=== PATIENT | male | born 1990 ===

== ENCOUNTER 2018-07-08 22:33 | Inpatient (IN) | payer SELFPAY ==
[~2018-07-08] VITALS: Ht 170.2 cm; Wt 119.8 kg
[2018-07-08 23:37] LABS: BASOPHILS % (AUTO) 0 % (0-10); EOSINOPHILS # (AUTO) 0.2 10^3/uL (0.0-0.3); EOSINOPHILS % (AUTO) 2 % (0-10); HEMATOCRIT 30 % (40-54); HEMOGLOBIN 10.5 G/DL (13.3-17.7); LYMPHOCYTES # (AUTO) 1.9 X 10^3 (1.0-4.0); LYMPHOCYTES % (AUTO) 19 % (12-44); MEAN CORPUSCULAR HEMOGLOBIN 32 PG (25-34); MEAN CORPUSCULAR HGB CONC 35 G/DL (32-36); MEAN CORPUSCULAR VOLUME 92 FL (80-99); MEAN PLATELET VOLUME 9.8 FL (7.4-10.4); MONOCYTES # (AUTO) 1.2 X 10^3 (0.0-1.0); MONOCYTES % (AUTO) 12 % (0-12); NEUTROPHILS # (AUTO) 6.7 X 10^3 (1.8-7.8); NEUTROPHILS % (AUTO) 67 % (42-75); PLATELET COUNT 147 10^3/uL (130-400); RED CELL DISTRIBUTION WIDTH 12.7 % (10.0-14.5); WHITE BLOOD COUNT 10.1 10^3/uL (4.3-11.0)
[2018-07-08 23:42] LABS: CLARITY,URINE CLEAR; COLOR,URINE YELLOW; GLUCOSE, URINE (UA) NEGATIVE (NEGATIVE); KETONES,URINE NEGATIVE (NEGATIVE); LEUKOCYTE ESTERASE ,URINE 1+ (NEGATIVE); NITRITE,URINE NEGATIVE (NEGATIVE); PH,URINE 6 (5-9); PROTEIN,URINE NEGATIVE (NEGATIVE); UROBILINOGEN,URINE 12 MG/DL (NORMAL)
[2018-07-08 23:49] LABS: INR 1.1 (0.8-1.4); PROTHROMBIN TIME PATIENT 14.4 SEC (12.2-14.7)
[2018-07-08 23:57] LABS: ALANINE AMINOTRANSFERASE 43 U/L (0-55); ALKALINE PHOSPHATASE 70 U/L (40-136); AMYLASE 114 U/L (25-125); BILIRUBIN,TOTAL 2.2 MG/DL (0.1-1.0); BUN/CREATININE RATIO 28; CALCIUM 8.8 MG/DL (8.5-10.1); CARBON DIOXIDE 26 MMOL/L (21-32); CHLORIDE 107 MMOL/L (98-107); CREATININE SERUM 0.76 MG/DL (0.60-1.30); GFR ESTIMATED > 60; GLUCOSE 104 MG/DL (70-105); LIPASE 28 U/L (8-78); MAGNESIUM 2.3 MG/DL (1.8-2.4); POTASSIUM 3.7 MMOL/L (3.6-5.0); SODIUM 144 MMOL/L (135-145); TOTAL PROTEIN 6.8 GM/DL (6.4-8.2)
[2018-07-08 23:58] LABS: BACTERIA,URINE NEGATIVE /HPF; BILIRUBIN,URINE 1+ (NEGATIVE); RBC,URINE RARE /HPF; SQUAMOUS EPITHELIAL CELL,UR RARE /HPF
[2018-07-08 23:59] LABS: AMPHETAMINE SCREEN, URINE NEGATIVE (NEGATIVE); BARBITURATE SCREEN URINE NEGATIVE (NEGATIVE); BENZODIAZEPINES SCREEN URINE NEGATIVE (NEGATIVE); CANNABINOID SCREEN, URINE NEGATIVE (NEGATIVE); COCAINE SCREEN URINE NEGATIVE (NEGATIVE); METHADONE STAT NEGATIVE (NEGATIVE); METHAMPHETAMINE SCREEN URINE S POSITIVE (NEGATIVE); OPIATE SCREEN URINE NEGATIVE (NEGATIVE); OXYCODONE STAT NEGATIVE (NEGATIVE); PROPOXYPHENE STAT NEGATIVE (NEGATIVE); TRICYCLIC ANTIDEPRESSANTS SCRE NEGATIVE (NEGATIVE)
[2018-07-09] VITALS (18 sets, daily range): BP systolic 121–148; BP diastolic 48–100
[2018-07-09] MEDS ORDERED: NS 100 ML (IVPB) BAG IV ONE
[2018-07-09] MEDS ORDERED: RECEIVED CONTRAST (Hold Metformin) IV SCH
[2018-07-09] MEDS ORDERED: IOHEXOL 350 MG/ML 100 ML (OMNIPAQUE 350) VIAL IV ONE
[2018-07-09] MEDS ORDERED: NS IV 1000 ML 1,000 ML IV ONE (00:34)
[2018-07-09] MEDS ORDERED: fentaNYL INJECTION 100 MCG/2 ML AMP IVP STA (00:34)
--- NOTE | 2018-07-09 02:00 | NUR ---
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
[2018-07-09] MEDS ORDERED: ONDANSETRON 4 MG/2 ML (SDV) Z0FRAN IV PRN (03:30)
[2018-07-09] MEDS: fentaNYL INJECTION 100 MCG/2 ML AMP IV PRN ×3 (03:55→22:07)
[2018-07-09] MEDS: NS IV 1000 ML 1,000 ML IV SCH ×2 (03:55→10:46)
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
--- NOTE | 2018-07-09 07:12 | Diagnostic Imaging Report ---
INDICATION: Pelvic pain COMPARISON: None FINDINGS: Single view of the pelvis demonstrates no fracture or dislocation. Articular surfaces are age-appropriate. There is a benign bone island superior to the right acetabulum. SI joints are symmetric. IMPRESSION: No fracture or dislocation. Dictated by: Dictated on workstation # [id number]
--- NOTE | 2018-07-09 07:13 | Diagnostic Imaging Report ---
INDICATION: Fall, rib pain COMPARISON: None FINDINGS: Frontal and lateral views of the chest demonstrate clear lungs bilaterally. The heart is normal. There is no pneumothorax. The osseous structures are age-appropriate. IMPRESSION: Negative chest Dictated by: Dictated on workstation # [id number]
--- NOTE | 2018-07-09 07:23 | Diagnostic Imaging Report ---
PROCEDURE: CT chest, abdomen, and pelvis with contrast. TECHNIQUE: Multiple contiguous axial images were obtained through the chest, abdomen, and pelvis after the administration of intravenous contrast. INDICATION: Fall, pain. COMPARISON: Imaging from same day. FINDINGS: No significant adenopathy within the chest. Bilateral gynecomastia. No aneurysmal dilatation of the thoracic aorta. The heart is within normal limits in size. No significant pericardial effusion. No pleural effusion. No pneumothorax. The lungs are clear. No acute osseous abnormality within the chest. The liver is unremarkable. Focal hypodensities and hyperdensities are identified extending through the central aspect of the spleen. This extends through the spleen measuring at least 5.7 cm. Largest focal hypodensity within the spleen is noted involving the inferior tip measuring 5.1 cm. The hyperdensities become more isodense on delayed imaging. The adrenal glands are unremarkable. The pancreas is unremarkable. The kidneys are unremarkable. No aneurysmal dilatation of abdominal aorta. The urinary bladder is decompressed, though otherwise grossly unremarkable. No bowel obstruction or pneumatosis. The appendix is unremarkable. Moderate amount of hyperdense fluid is identified throughout the abdomen and pelvis, including about the spleen, liver, and within the lower pelvis. Mildly prominent bilateral inguinal lymph nodes. No free air. 2.5 cm sclerotic lesion identified within the right supra-acetabular location. No acute osseous abnormality. IMPRESSION: Grade 3 splenic injury with associated contrast blush concerning for active hemorrhage. This is associated with moderate hemoperitoneum. No acute traumatic abnormality within the chest. Indeterminate right supra-acetabular 2.5 cm sclerotic lesion. This is of uncertain etiology, though favor to relate to a bone island. Comparison to prior imaging would be beneficial. Additional findings as described above. Agree with preliminary interpretation. Dictated by: Dictated on workstation # [id number]
[2018-07-09] MEDS ORDERED: FLU QUADRIvalent (5+ YOA) 2018-2019 (AFLURIA) 0.5 ML IM ONE ×2 (08:15→10:45)
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
[2018-07-09] MEDS: HYDROcodone/APAP 5 MG/325 MG (LORTAB) TAB PO PRN ×2 (11:49→19:38)
[2018-07-09 12:42] LABS: ALANINE AMINOTRANSFERASE 36 U/L (0-55); ALBUMIN 3.6 GM/DL (3.2-4.5); ALKALINE PHOSPHATASE 57 U/L (40-136); BILIRUBIN,TOTAL 1.7 MG/DL (0.1-1.0); BUN/CREATININE RATIO 25; CALCIUM 8.4 MG/DL (8.5-10.1); CARBON DIOXIDE 24 MMOL/L (21-32); CHLORIDE 108 MMOL/L (98-107); CREATININE SERUM 0.61 MG/DL (0.60-1.30); GFR ESTIMATED > 60; GLUCOSE 95 MG/DL (70-105); POTASSIUM 3.9 MMOL/L (3.6-5.0); SODIUM 140 MMOL/L (135-145); TOTAL PROTEIN 6.2 GM/DL (6.4-8.2)
--- NOTE | 2018-07-09 14:45 | NUR ---
REPORT RECEIVED FROM JP ANDERSON IN ICU. THIS RN WILL AWAIT PT'S ARRIVAL TO ROOM 410.
--- NOTE | 2018-07-09 15:20 | NUR ---
Patient transferred to [facility]. Report to MONICA Reyes. MONICA Reyes to assume care at this time.
--- NOTE | 2018-07-09 15:20 | NUR ---
Patient transferred to 410 per MD ORDERS accompanied by staff. Patient Notified and understand transfer. Personal belongings with patient. THIS RN WILL ASSUME PT CARE AT THIS TIME.
--- NOTE | 2018-07-09 22:35 | NUR ---
This RN called Dr. Maxwell in reference to the patient complaining of chest pain. Patient states that he is having chest pain and pressure that gets worse with palpation and deep breathing. Vitals are as charted. EKG is obtained and read. Dr. Maxwell ordered a Troponin now and one in 6 hours. Order is repeated and confirmed. Will continue to monitor.
[2018-07-10] VITALS: BP 141/71
[2018-07-10 04:30] VITALS: BP 128/65
[2018-07-10] MEDS: fentaNYL INJECTION 100 MCG/2 ML AMP IV PRN (04:45)
--- NOTE | 2018-07-10 04:54 | NUR ---
This RN called Dr. Maxwell in reference to the patient's temperature at 101.1 and SPO2 at 89%. Dr. Maxwell ordered 1000 mg of Tylenol PO once, MAT Protocol and IS. All orders are repeated and confirmed. Will continue to monitor.
[2018-07-10] MEDS ORDERED: ACETAMINOPHEN 500 MG TAB (TYLENOL) ONE (04:55)
[2018-07-10 05:00] VITALS: BP 128/65
[2018-07-10] MEDS ORDERED: ACETAMINOPHEN 500 MG TAB (TYLENOL) PO ONE (05:00)
--- NOTE | 2018-07-10 05:41 | NUR ---
This RN went into the room to recheck temperature and patient states that he feels short of breath. Patient is breathing 26 per minute and SPO2 is 86% on room air. Patient is placed on 1.5 liters of oxygen. SPO2 rises to 93% and patient states that he doesn't feel as short of breath anymore. Will continue to monitor.
[2018-07-10 07:54] LABS: BASOPHILS % (AUTO) 0 % (0-10); EOSINOPHILS # (AUTO) 0.1 10^3/uL (0.0-0.3); EOSINOPHILS % (AUTO) 1 % (0-10); HEMATOCRIT 29 % (40-54); HEMOGLOBIN 10.5 G/DL (13.3-17.7); LYMPHOCYTES # (AUTO) 1.2 X 10^3 (1.0-4.0); LYMPHOCYTES % (AUTO) 10 % (12-44); MEAN CORPUSCULAR HEMOGLOBIN 33 PG (25-34); MEAN CORPUSCULAR HGB CONC 36 G/DL (32-36); MEAN CORPUSCULAR VOLUME 91 FL (80-99); MEAN PLATELET VOLUME 9.8 FL (7.4-10.4); MONOCYTES # (AUTO) 1.3 X 10^3 (0.0-1.0); MONOCYTES % (AUTO) 10 % (0-12); NEUTROPHILS # (AUTO) 10.1 X 10^3 (1.8-7.8); NEUTROPHILS % (AUTO) 79 % (42-75); PLATELET COUNT 146 10^3/uL (130-400); RED CELL DISTRIBUTION WIDTH 12.9 % (10.0-14.5); WHITE BLOOD COUNT 12.7 10^3/uL (4.3-11.0)
[2018-07-10 08:00] VITALS: BP 115/56
[2018-07-10 08:10] LABS: BUN/CREATININE RATIO 20; CALCIUM 8.7 MG/DL (8.5-10.1); CARBON DIOXIDE 23 MMOL/L (21-32); CHLORIDE 104 MMOL/L (98-107); CREATININE SERUM 0.59 MG/DL (0.60-1.30); GFR ESTIMATED > 60; GLUCOSE 110 MG/DL (70-105); POTASSIUM 3.9 MMOL/L (3.6-5.0); SODIUM 137 MMOL/L (135-145)
[2018-07-10 12:00] VITALS: BP 127/60
--- NOTE | 2018-07-10 12:16 | Diagnostic Imaging Report ---
INDICATION: Chest pain shortness of breath COMPARISON: 07/08/2018 FINDINGS: Frontal and lateral views the chest demonstrate clear lungs bilaterally. The heart size is normal. There is no pneumothorax. Osseous structures are normal. IMPRESSION: No acute findings. Normal chest. Dictated by: Dictated on workstation # [id number]
--- NOTE | 2018-07-10 12:31 | Progress Note ---
Subjective Time Seen by a Provider: 10:08 Subjective/Events-last exam Pt seen and examined, events of last night noted. Pt states still has some mild chest pain and trouble breathing. He does not have oxygen on and is not in respiratory distress. Review of Systems General: No Chills, No Night Sweats HEENT: Head Aches Pulmonary: No Dyspnea, No Cough Cardiovascular: Chest Pain; No: Palpitations Gastrointestinal: Abdominal Pain; No: Nausea, Vomiting Objective Exam Vital Signs Date Time Temp Pulse Resp B/P (MAP) Pulse Ox O2 Delivery O2 Flow Rate FiO2 07/10/18 12:00 99.7 94 20 127/60 (82) 92 Room Air 07/10/18 09:00 Room Air 07/10/18 08:00 98.8 84 20 115/56 (75) 95 Room Air 07/10/18 07:02 Nasal Cannula 1.50 07/10/18 05:45 100.0 07/10/18 05:02 101.1 07/10/18 05:00 93 Room Air 07/10/18 05:00 102 93 21 07/10/18 04:30 101.1 98 24 128/65 (86) 90 Room Air 07/10/18 00:00 99.9 100 20 141/71 (94) 95 Room Air 07/09/18 21:00 Room Air 07/09/18 20:35 99.9 85 18 133/64 (87) 95 Room Air 07/09/18 15:30 Room Air 07/09/18 15:00 81 20 94 Room Air 07/09/18 14:00 84 22 132/81 (98) 95 Room Air 07/09/18 13:00 80 18 130/98 (109) 95 Room Air 07/09/18 13:00 82 I & O 07/10/18 07:00 Intake Total 1300 ml Output Total 1150 ml Balance 150 ml Capillary Refill : Less Than 3 Seconds General Appearance: WD/WN, Mild Distress HEENT: Pharynx Normal, Moist Mucous Membranes; No Scleral Icterus (L), No Scleral Icterus (R) Neck: Full Range of Motion, Non Tender, Supple Respiratory: Chest Non Tender, Lungs Clear, Normal Breath Sounds, No Accessory Muscle Use, No Respiratory Distress Cardiovascular: Regular Rate, Rhythm, No Edema, No Murmur, Normal Peripheral Pulses Gastrointestinal: soft, tenderness (LUQ and L flank) Extremity: Normal Capillary Refill, Normal Inspection, Normal Range of Motion, Non Tender, No Calf Tenderness, No Pedal Edema Neurologic/Psychiatric: Alert, Oriented x3, No Motor/Sensory Deficits, Normal 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, 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 as 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 Skin: Normal Color, Warm/Dry Lymphatic: No Adenopathy (neck, axilla or groin) Results Lab Laboratory Tests 07/09/18 23:05: Troponin I < 0.028 07/10/18 04:00: Troponin I < 0.028 07/10/18 07:46: White Blood Count 12.7H, Red Blood Count 3.23L, Hemoglobin 10.5L, Hematocrit 29L , Mean Corpuscular Volume 91, Mean Corpuscular Hemoglobin 33, Mean Corpuscular Hemoglobin Concent 36, Red Cell Distribution Width 12.9, Platelet Count 146, Mean Platelet Volume 9.8, Neutrophils (%) (Auto) 79H, Lymphocytes (%) (Auto) 10L , Monocytes (%) (Auto) 10, Eosinophils (%) (Auto) 1, Basophils (%) (Auto) 0, Neutrophils # (Auto) 10.1H, Lymphocytes # (Auto) 1.2, Monocytes # (Auto) 1.3H, Eosinophils # (Auto) 0.1, Basophils # (Auto) 0.0, Sodium Level 137, Potassium Level 3.9, Chloride Level 104, Carbon Dioxide Level 23, Anion Gap 10, Blood Urea Nitrogen 12, Creatinine 0.59L, Estimat Glomerular Filtration Rate > 60, BUN /Creatinine Ratio 20, Glucose Level 110H, Calcium Level 8.7 Assessment/Plan Assessment/Plan Assessment/Plan Splenic Laceration - Grade III Hypoxia and chest pain Pt has splenic laceration with what looks like small bleed on CT. Hemoglobin is stable, same as when he came in Wednesday night 10.5. I would expect if he had ongoing bleeding that his Hemoglobin would have dropped over the 2 days we have observed him. CXR showed no acute process; I believe he just has some atelectasis and referred pain, which is why he had trouble breathing and WBC jumped up. I think he probably can go home and follow up with me in the clinic. Told to return to ER if he feels faint, passes out or has increased abdominal pain. Clinical Quality Measures DVT/VTE Risk/Contraindication: Risk Factor Score Per Nursin RFS Level Per Nursing on Admit: 2=Moderate DORCAS OCONNOR DO Jul 10, 2018 12:31
[2018-07-10] MEDS ORDERED: ACHD5005 PO (12:32)
--- NOTE | 2018-07-10 12:35 | Discharge Inst-Surgical ---
Discharge Inst-Surgical Depart Medication/Instructions New, Converted or Re-Newed RX: RX Given to Pt/Family Patient Instructions Follow up Appt: Make appointment for 1 week. [phone] Instructions: No lifting greater than 20 pounds. No strenuous activity. May shower or tub bath. Use incentive spirometer at home as directed. No Smoking Symptoms to Report: Appetite Changes, Extremity Discoloration, Numbness/Tingling, Swelling Increased , Bleeding Excessive, Eyesight Changes, Pain Increased, Urine Color Change, Constipation(Persistent), Fever over 101 degree F, Pain/Pressure in chest, Urinating Difficulty, Cough Up/Vomit Blood, Heart Beat Irreg/Pounding, Pain/ Pressure in jaw, Cramps in feet or legs, Lightheadedness, Pain/Pressure in shoulder, Diarrhea(Persistent), Memory Changes Suddenly, Questions/Concerns, Weight gain consecutive days, Dizziness/Fainting, Nausea/Vomiting, Shortness of Breath, Weight gain over 2 pounds If questions or concerns contact your physician Or seek help at emergency department. Activity Activity as Tolerated: Yes Driving Instructions: You May Drive Diet Discharge Diet: No Restrictions Diet After 24 Hours: Clear Liquid if Nauseous If Any Problems/Questions/Issu: Contact Your Physician, Go to Emergency Room Skin/Wound Care Infection Signs and Symptoms: Increased Swelling, Temperature Above 101 F DORCAS OCONNOR DO Jul 10, 2018 12:34
[2018-07-10] MEDS: HYDROcodone/APAP 5 MG/325 MG (LORTAB) TAB PO PRN (12:48)
--- NOTE | 2018-07-10 12:59 | NUR ---
CALLED DR OCONNOR. PT'S S/O IS CONCERNED THAT HE IS HAVING HOT FLASHES AND SEEMS TO BE BREATHING HEAVIER THAN NORMAL. DR OCONNOR WILL BE UP TO TALK TO THEM SOON.
[2018-07-10 14:30] VITALS: BP 127/60
--- NOTE | 2018-07-11 14:34 | Physician Query Clarification ---
PQ-Further Specificity Admission/Discharge Admission Date: Jul 09, 2018 at 00:30 Discharge Date: Jul 10, 2018 at 14:30 The medical record reflects the following clinical scenario: History/Risk Factors: Grade III splenic laceration s/p fall from truck Clinical Findings: hgb/hct 10.0/29 Treatment: monitoring Question: Can you further specify anemia per the clinical indicators above? Please document below. 1. acute blood loss anemia 2. chronic blood loss anemia 3. Other, with explanation of the clinical findings. 4. Clinically undetermined, no explanation for the clinical findings. PHYSICIAN RESPONSE Can you specify per above: 1 (secondary to splenic laceration) In responding to this query, please exercise your independent professional judgment. The purpose of this communication is to more accurately reflect the complexity of your patients condition. The fact that a question is asked does not imply that any particular answer is desired or expected. Thank you for your timely response to this clarification. Requestors name: Liz THIS PHYSICIAN QUERY FORM IS A PERMANENT PART OF THE MEDICAL RECORD LIZ MATIAS Jul 11, 2018 14:34 DORCAS OCONNOR DO Jul 13, 2018 11:25
--- NOTE | 2018-07-13 15:52 | Physician Query-Final Dx ---
Final Diagnosis Give Final Diagnosis Please give Final Diagnosis CLARISSA KOWALSKI Jul 13, 2018 15:52
== END 2018-07-10 14:30 | disposition home or self-care (01) | DRG 815 ==
LOC: ER 22:37 → ICU 07-09 00:30 → 4TH 07-09 15:39
PROVIDERS: ADMIT Surgery; ATTEND Surgery
DX: S36.031A Moderate laceration of spleen, initial encounter (principal); D62 Acute posthemorrhagic anemia; J98.11 Atelectasis; F15.90 Other stimulant use, unspecified, uncomplicated; W17.89XA Other fall from one level to another, initial encounter
CPT/HCPCS: 36415; 71046; 71260; 72170; 74177; 80048; 80053; 80306; 81000; 82150; 83690; 83735; 84484; 85014; 85018; 85025; 85610; 85730; 86850; 86900; 86901; 87081; 90471; 90686; 93005; 94664; 96361; 96374